=== PATIENT | male | born 1930 | race Hispanic/Latino ===

== ENCOUNTER → 2017-08-18 | Outpatient (CLI) | payer MEDICARE ==
[~2017-08-18] MED LIST: ALPHAGAN P OP; FENTANYL CITRATE/PF 100MCG/2 ML INJ ONE; MIDAZOLAM HCL 2 MG/2 ML VIAL ONE; SODIUM CHLORIDE 0.9% 50ML 50 ML ONE; Z.0.DORZOLAMIDE-TIM1 OP; Z.0.HYDROCHLOROTHIA2 PO; Z.0.LATANOPROST2.5 M OP
[2017-08-18 09:33] LABS: INR 0.95; PROTHROMBIN TIME 13.2 seconds (11.9-14.5)
[2017-08-18 09:34] LABS: PARTIAL THROMBOPLASTIN TIME 36.2 seconds (23.8-35.5)
--- NOTE | 2017-08-18 11:50 | Diagnostic Imaging Report ---
PROCEDURE:CHEST XRAY POST PROCEDURE TECHNIQUE:Upright AP chest INDICATION:Post lung biopsy COMPARISON:None. FINDINGS: See conclusion. CONCLUSION: 1. Known right upper lobe mass. 2. No evidence of pneumothorax or postprocedural complication. 3. Normal heart size. Dictated by: Roosevelt Campo M.D. on 08/18/2017 at 11:59 Electronically approved by: Roosevelt Campo M.D. on 08/18/2017 at 11:59
--- NOTE | 2017-08-18 12:02 | Diagnostic Imaging Report ---
CT-guided Lung Biopsy August 18, 2017 Pre-Procedure Diagnosis: Right upper lobe mass Post-procedure Diagnosis:Right upper lobe mass Patient Support Associate: Luis Eduardo Campo Warehouse Shipping Clerk: None Sedation: None. Heart rate and oxygen saturation were monitored in real-time. Blood pressure was measured in 5 minute increments. 1% lidocaine was used for local anesthesia. Radiation Dose:1149.07 mGy-cm (DLP) Estimate blood loss: <5 mL Blood administered: None Complications: None Implants/Grafts: None Specimen: 18-gauge 2 cm core biopsy x6; 22-gauge FNA x3 Procedure: Informed consent was obtained and the patient placed supine. A timeout was performed, followed by pool manager CT within the region of interest. The right axilla was prepped and draped in standard sterile fashion. Using intermittent CT guidance, a 16-gauge guide needle was advanced into the peripheral aspect of the necrotic right upper lobe mass. 3 22-gauge FNA biopsies were performed, followed by 8 2-cm core biopsies. Needle positioning was confirmed with intermittent CT guidance. 6 18-gauge 2 cm core biopsies were submitted to pathology in formalin. 2 18-gauge 2 cm core biopsies were submitted to the laboratory for Gram stain, culture, sensitivity, fungal and AFB evaluation. 3 22-gauge FNA were submitted for pathology. At the termination of the procedure the needles were removed and a sterile dressing applied. No evidence of postprocedural pneumothorax. Findings: Centrally necrotic right upper lobe mass with surrounding groundglass and airspace opacity. Impression: Successful right upper lobe biopsy. Plan: Serial chest radiographs to evaluate for delayed pneumothorax. Follow-up pathology and cultures. This report was generated with voice-recognition technology. Errors in cytopathology technologist can occur. Please interpret accordingly and contact a radiologist if there are any questions regarding the report. Signed by: Dr. Roosevelt Campo M.D. on 08/18/2017 11:58 AM
--- NOTE | 2017-08-18 12:02 | Diagnostic Imaging Report ---
CT-guided Lung Biopsy August 18, 2017 Pre-Procedure Diagnosis: Right upper lobe mass Post-procedure Diagnosis:Right upper lobe mass Online Activist: Luis Eduardo Campo Bonding Machine Setter: None Sedation: None. Heart rate and oxygen saturation were monitored in real-time. Blood pressure was measured in 5 minute increments. 1% lidocaine was used for local anesthesia. Radiation Dose:1149.07 mGy-cm (DLP) Estimate blood loss: <5 mL Blood administered: None Complications: None Implants/Grafts: None Specimen: 18-gauge 2 cm core biopsy x6; 22-gauge FNA x3 Procedure: Informed consent was obtained and the patient placed supine. A timeout was performed, followed by [facility] certified concierge CT within the region of interest. The right axilla was prepped and draped in standard sterile fashion. Using intermittent CT guidance, a 16-gauge guide needle was advanced into the peripheral aspect of the necrotic right upper lobe mass. 3 22-gauge FNA biopsies were performed, followed by 8 2-cm core biopsies. Needle positioning was confirmed with intermittent CT guidance. 6 18-gauge 2 cm core biopsies were submitted to pathology in formalin. 2 18-gauge 2 cm core biopsies were submitted to the laboratory for Gram stain, culture, sensitivity, fungal and AFB evaluation. 3 22-gauge FNA were submitted for pathology. At the termination of the procedure the needles were removed and a sterile dressing applied. No evidence of postprocedural pneumothorax. Findings: Centrally necrotic right upper lobe mass with surrounding groundglass and airspace opacity. Impression: Successful right upper lobe biopsy. Plan: Serial chest radiographs to evaluate for delayed pneumothorax. Follow-up pathology and cultures. This report was generated with voice-recognition technology. Errors in educational administrator can occur. Please interpret accordingly and contact a radiologist if there are any questions regarding the report. Signed by: Dr. Roosevelt Campo M.D. on 08/18/2017 11:58 AM
--- NOTE | 2017-08-18 12:25 | Diagnostic Imaging Report ---
PROCEDURE:CHEST XRAY POST PROCEDURE TECHNIQUE:Portable AP chest totaling 2 radiographs INDICATION:Right upper lobe biopsy COMPARISON:[facility], DX, CHEST XRAY POST PROCEDURE, 08/18/2017, 11:01. FINDINGS: See conclusion. CONCLUSION: 1. No interval change from August 18, 2017 and 1101 hrs. 2. Stable right upper lobe mass. No evidence of pneumothorax. 3. No pleural effusions. 4. Stable cardiomediastinal silhouette, with normal heart size. 5. Intact skeleton. Dictated by: Roosevelt Campo M.D. on 08/18/2017 at 12:34 Electronically approved by: Roosevelt Campo M.D. on 08/18/2017 at 12:34
== END ==
LOC: CT 08:43
PROVIDERS: ATTEND Internal Medicine Critical Care Medicine
DX: R91.8 Other nonspecific abnormal finding of lung field (principal)
CPT/HCPCS: 32405; 36415; 71010; 77012; 85049; 85610; 85730; 87070; 87102; 87116; 87205; 87206; 88172; 88173; 88305; J2250